=== PATIENT | female | born 1965 | race Two or more races ===

== ENCOUNTER 2017-06-26 21:47 | Emergency (ER) | payer SELFPAY ==
[~2017-06-26] VITALS: Ht 152.4 cm; Wt 79.4 kg
[2017-06-26 21:52] VITALS: BP 145/68
[2017-06-27] MEDS ORDERED: HYDROcodone-ACET 10/325MG TAB PO ONE (02:30)
== END 2017-06-27 03:25 | disposition home or self-care (01) ==
LOC: EDBD 21:47 → ER 21:50
DX: S93.401A Sprain of unspecified ligament of right ankle, initial encounter (principal); S13.4XXA Sprain of ligaments of cervical spine, initial encounter; V43.52XA Car driver injured in collision with other type car in traffic accident, initial encounter; Y93.89 Activity, other specified; Y99.8 Other external cause status; Y92.410 Unspecified street and highway as the place of occurrence of the external cause
CPT/HCPCS: 73610